=== PATIENT | female | born 1940 | race Caucasian/White ===

== ENCOUNTER → 2016-12-27 | Outpatient (REF) | payer MEDICARE, BC, OTHER ==
[2016-12-27 13:37] LABS: ALBUMIN 3.5 GM/DL (3.2-5.2); ALBUMIN/GLOBULIN RATIO 1.09 (1.00-1.93); BILIRUBIN,TOTAL 0.6 MG/DL (0.2-1.0); CALCIUM LEVEL 8.8 MG/DL (8.8-10.2); CREATININE FOR GFR 1.1 MG/DL (0.55-1.02); GLOMERULAR FILTRATION RATE 51.1 (>39); TOTAL PROTEIN 6.7 GM/DL (6.4-8.2)
[2016-12-27 13:50] LABS: BASO # 0.1 K/mm3 (0.0-0.2); BASO % 0.8 % (0.0-1.0); EOS # 0.3 K/mm3 (0.0-0.50); EOS % 3.7 % (0.0-3.0); LARGE UNSTAINED CELL # 0.1 K/mm3 (0.0-0.4); LARGE UNSTAINED CELL % 1.5 % (0.0-4.0); LYMPH # 1.4 K/mm3 (1.5-4.5); LYMPH % 17.4 % (24.0-44.0); MEAN CORPUSCULAR HEMOGLOBIN 28.8 pg (27.0-33.0); MEAN CORPUSCULAR HGB CONC 32.1 g/dl (32.0-36.5); MEAN CORPUSCULAR VOLUME 89.8 fl (80.0-96.0); MONO # 0.4 K/mm3 (0.0-0.8); MONO % 4.8 % (0.0-5.0); NEUTROPHILS # 5.3 K/mm3 (1.8-7.7); NEUTROPHILS % 71.7 % (36.0-66.0); PLATELET COUNT, AUTOMATED 264 k/mm3 (150-450); RED CELL DISTRIBUTION WIDTH 13.9 % (11.5-14.5); WHITE BLOOD COUNT 7.3 K/mm3 (4.0-10.0)
== END ==
LOC: M LABDRAW1 12:28
PROVIDERS: ATTEND Physician Assistant
DX: C34.11 Malignant neoplasm of upper lobe, right bronchus or lung (principal)

== ENCOUNTER → 2017-01-12 | Outpatient (REF) | payer MEDICARE, OTHER | LOC: M LABDRAW1 10:55 | PROVIDERS: ATTEND Internal Medicine Endocrinology, Diabetes & Metabolism | DX: E55.9 Vitamin D deficiency, unspecified (principal); E06.3 Autoimmune thyroiditis ==

== ENCOUNTER → 2017-02-24 | Outpatient (CLI) | payer MEDICARE, OTHER ==
[~2017-02-24] MED LIST: ZOFR4TAB3 PO
[2017-02-24 18:02] LABS: BASO # 0.1 K/mm3 (0.0-0.2); BASO % 0.9 % (0.0-1.0); EOS # 0.4 K/mm3 (0.0-0.50); EOS % 4.9 % (0.0-3.0); LYMPH # 1.2 K/mm3 (1.5-4.5); LYMPH % 15.1 % (24.0-44.0); MEAN CORPUSCULAR HEMOGLOBIN 30.4 pg (27.0-33.0); MEAN CORPUSCULAR HGB CONC 33.9 g/dl (32.0-36.5); MEAN CORPUSCULAR VOLUME 89.8 fl (80.0-96.0); MONO # 0.3 K/mm3 (0.0-0.8); MONO % 4.2 % (0.0-5.0); NEUTROPHILS # 5.4 K/mm3 (1.8-7.7); NEUTROPHILS % 73.8 % (36.0-66.0); RED CELL DISTRIBUTION WIDTH 13.8 % (11.5-14.5); WHITE BLOOD COUNT 7.4 K/mm3 (4.0-10.0)
[2017-02-24 18:10] LABS: ALBUMIN 3.6 GM/DL (3.2-5.2); ALBUMIN/GLOBULIN RATIO 1.09 (1.00-1.93); BILIRUBIN,TOTAL 0.5 MG/DL (0.2-1.0); CALCIUM LEVEL 8.8 MG/DL (8.8-10.2); CREATININE FOR GFR 0.96 MG/DL (0.55-1.02); GLOMERULAR FILTRATION RATE 59.8 (>39); POTASSIUM SERUM 4.5 MEQ/L (3.5-5.1); TOTAL PROTEIN 6.9 GM/DL (6.4-8.2)
== END ==
LOC: M SMT 11:34
PROVIDERS: ATTEND Physician Assistant Medical
DX: R42 Dizziness and giddiness (principal); E61.1 Iron deficiency

== ENCOUNTER → 2017-02-28 | Outpatient (CLI) | payer MEDICARE, BC, OTHER ==
--- NOTE | 2017-02-28 16:51 | ECGEPIP ---
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
--- NOTE | 2017-03-02 07:24 | REP ---
MR BRAIN WITHOUT CONTRAST: HISTORY: Syncope. Areas of increased signal intensity on T2-weighted images are present in the periventricular and subcortical white matter. This represents small vessel ischemic disease. There is no intraparenchymal hemorrhage, infarct, mass or midline shift. The ventricular system is normal in appearance. The cortical sulci are dilated consistent with minimal volume loss. There is no extracerebral collection. Mucosal thickening is present in the ethmoid and maxillary sinuses. IMPRESSION: 1. Small vessel ischemic disease. 2. Minimal volume loss. Signed by Bart Sanchez MD 03/02/2017 09:41 A
== END ==
LOC: M RAD 13:35
PROVIDERS: ATTEND Physician Assistant Medical
DX: R42 Dizziness and giddiness (principal)

== ENCOUNTER 2017-04-09 16:10 | Emergency (ER) | payer MEDICARE, BC, OTHER ==
[~2017-04-09] VITALS: Ht 154.9 cm; Wt 51.8 kg
[2017-04-09] MEDS ORDERED: ONDANSETRON 4MG/2ML VIAL (J2405) IV ONE (16:30)
[2017-04-09] MEDS ORDERED: NS 1,000 ML IV ONE (16:30)
[2017-04-09 16:54] LABS: BASO % 0.1 % (0.0-1.0); EOS # 0.1 K/mm3 (0.0-0.50); EOS % 0.6 % (0.0-3.0); LARGE UNSTAINED CELL # 0.1 K/mm3 (0.0-0.4); LARGE UNSTAINED CELL % 0.5 % (0.0-4.0); LYMPH # 0.6 K/mm3 (1.5-4.5); LYMPH % 3.9 % (24.0-44.0); MEAN CORPUSCULAR HEMOGLOBIN 30.7 pg (27.0-33.0); MEAN CORPUSCULAR HGB CONC 35.2 g/dl (32.0-36.5); MEAN CORPUSCULAR VOLUME 87.2 fl (80.0-96.0); MONO # 0.5 K/mm3 (0.0-0.8); NEUTROPHILS # 13.8 K/mm3 (1.8-7.7); NEUTROPHILS % 91.9 % (36.0-66.0); PLATELET COUNT, AUTOMATED 250 k/mm3 (150-450); RED CELL DISTRIBUTION WIDTH 13.1 % (11.5-14.5)
--- NOTE | 2017-04-09 17:16 | REP ---
Acute abdominal series three views including PA chest and supine upright abdomen: PA chest: Comparison is 06/30/2016. The lung byrne are clear. Cardiac size is normal. The sima, mediastinum, and bony thorax are unchanged. There is no free subdiaphragmatic air. Impression: Negative PA chest. No interval change. Abdomen, supine upright views: The bowel gas pattern is normal. F there are vascular calcifications in the splenic artery. There is mild lumbar scoliosis convex right. The skeletal soft tissue structures otherwise are unremarkable. Impression: Normal bowel gas pattern. Signed by Rory Guevara MD 04/09/2017 05:07 P
[2017-04-09 17:18] LABS: ALBUMIN 3.6 GM/DL (3.2-5.2); ALBUMIN/GLOBULIN RATIO 1.09 (1.00-1.93); ALKALINE PHOSPHATASE 80 U/L (45-117); ALT/SGPT 17 U/L (12-78); ANION GAP 9 MEQ/L (8-16); AST/SGOT 14 U/L (15-37); BILIRUBIN,DIRECT 0.2 MG/DL (0.0-0.2); BLOOD UREA NITROGEN 17 MG/DL (7-18); CARBON DIOXIDE LEVEL 27 MEQ/L (21-32); CHLORIDE LEVEL 98 MEQ/L (98-107); GLOMERULAR FILTRATION RATE > 60.0 (>39); GLUCOSE, FASTING 124 MG/DL (83-110); POTASSIUM SERUM 3.7 MEQ/L (3.5-5.1); SODIUM LEVEL 134 MEQ/L (136-145); TOTAL PROTEIN 6.9 GM/DL (6.4-8.2)
[2017-04-09] MEDS ORDERED: ZOFR4TAB3 PO (17:30)
[2017-04-09] MEDS ORDERED: ACETAMINOPHEN TAB 650MG DOSE (2X325MG) PO ONE (18:30)
--- NOTE | 2017-04-09 18:30 | ECGEPIP ---
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
[2017-04-09 19:15] VITALS: BP 147/65
== END 2017-04-09 19:37 | disposition home or self-care (01) ==
LOC: M ED 16:10
DX: R11.2 Nausea with vomiting, unspecified (principal); R19.7 Diarrhea, unspecified; I10 Essential (primary) hypertension; Z85.118 Personal history of other malignant neoplasm of bronchus and lung
CPT/HCPCS: 74022; 80048; 80076; 82550; 82553; 83690; 84484; 85025; 93005; 93041; 96374; 99285; J2405

== ENCOUNTER → 2017-06-24 | Outpatient (CLI) | payer MEDICARE, BC, OTHER ==
--- NOTE | 2017-06-24 14:26 | REP ---
CAROTID ULTRASOUND: Real-time ultrasound evaluation and duplex Doppler interrogation of the extracranial carotid vasculature is performed. There is mild plaquing and narrowing in both carotid bulbs extending into the internal and external carotid arteries. Luminal narrowing is less than 50%. There is no evidence of hemodynamically significant stenosis of either internal carotid artery. Normal flow velocities are seen. The vertebral arteries demonstrate normal direction of flow. RIGHT LEFT Peak systolic velocity ICA 56.2 cm/s 64.8 cm/s End diastolic velocity ICA 17.1 cm/s 19 cm/s Peak systolic velocity CCA 54.5 cm/s 75.9 cm/s Peak systolic velocity ECA 78.5 cm/s 73.5 cm/s ICA/CCA ratio 1.0 0.85 IMPRESSION: Bilateral luminal narrowing of the internal carotid arteries less than 50%. No evidence of hemodynamically significant stenosis. Signed by Rory Villalobos MD 06/24/2017 02:17 P
== END ==
LOC: M RAD 12:59
PROVIDERS: ATTEND Physician Assistant Medical
DX: R09.89 Other specified symptoms and signs involving the circulatory and respiratory systems (principal)

== ENCOUNTER → 2017-07-07 | Outpatient (CLI) | payer MEDICARE, BC, OTHER ==
--- NOTE | 2017-07-07 16:26 | REP ---
Digital diagnostic unilateral left breast mammography with CAD: History: Screening mammography June 27, 2017 BIRADS category zero because of some progressive calcifications in the inferior medial aspect of the left breast for which diagnostic imaging was recommended. Comparison is also made with prior mammography May 20, 2016, April 10, 2015, and February 19, 2014. Mammographic findings: Magnified focal spot compression CC, MLO and true MLO views confirm the presence of coarse heterogeneous pleomorphic calcifications in a tight grouping in the inferior medial quadrant of the left breast with some adjacent new calcifications. These are progressing since prior mammography from April 2016. A equivocal associated soft tissue component is present. No other suspicious mammographic finding. Impression: BIRADS category four suspicious left breast imaging. Coarse heterogeneous microcalcifications noted inferiorly and medially left breast. Stereotactic needle biopsy recommended. BI-RADS/ACR category 4 mammogram. Suspicious abnormality - biopsy should be considered. Usually requires biopsy. This mammogram was interpreted with the aid of an FDA-approved computer-aided detection system. The patient states she had a clinical breast exam in May 2017. The patient letter being requested is M4. Signed by Justin Ortega MD 07/07/2017 05:27 P
== END ==
LOC: M RAD 13:04
DX: R92.2 Inconclusive mammogram (principal); R92.0 Mammographic microcalcification found on diagnostic imaging of breast

== ENCOUNTER → 2017-07-15 | Outpatient (CLI) | payer MEDICARE, BC, OTHER ==
[2017-07-15 11:35] LABS: BASO # 0.1 10^3/uL (0.0-0.2); BASO % 1.5 % (0.0-1.0); EOS # 0.4 10^3/uL (0.0-0.50); EOS % 5.1 % (0.0-3.0); IMMATURE GRANULOCYTE % 0.4 % (0-0); LYMPH # 1.3 10^3/uL (1.5-4.5); LYMPH % 19.3 % (24.0-44.0); MEAN CORPUSCULAR HEMOGLOBIN 29.1 pg (27.0-33.0); MEAN CORPUSCULAR HGB CONC 31.9 g/dl (32.0-36.5); MEAN CORPUSCULAR VOLUME 91.3 fl (80.0-96.0); MONO # 0.6 10^3/uL (0.0-0.8); MONO % 8.4 % (0.0-5.0); NEUTROPHILS # 4.4 10^3/uL (1.8-7.7); NEUTROPHILS % 65.3 % (36.0-66.0); PLATELET COUNT, AUTOMATED 293 10^3/uL (150-450); RED CELL DISTRIBUTION WIDTH 14.3 % (11.5-14.5); WHITE BLOOD COUNT 6.8 10^3/uL (4.0-10.0)
[2017-07-15 12:27] LABS: ALBUMIN 3.4 GM/DL (3.2-5.2); BILIRUBIN,TOTAL 0.4 MG/DL (0.2-1.0); CALCIUM LEVEL 8.7 MG/DL (8.8-10.2); CREATININE FOR GFR 1.08 MG/DL (0.55-1.02); GLOMERULAR FILTRATION RATE 52.1 (>39); POTASSIUM SERUM 4.4 MEQ/L (3.5-5.1); THYROXINE (T4) 16.4 UG/DL (4.5-12.0); TOTAL PROTEIN 6.8 GM/DL (6.4-8.2)
== END ==
LOC: M LABDRAW1 08:21
PROVIDERS: ATTEND Physician Assistant Medical
DX: I10 Essential (primary) hypertension (principal); E55.9 Vitamin D deficiency, unspecified

== ENCOUNTER → 2017-08-08 | Outpatient (REF) | payer MEDICARE, OTHER | LOC: M LAB REF 12:43 | PROVIDERS: ATTEND Radiology Diagnostic Radiology | DX: M61.9 Calcification and ossification of muscle, unspecified (principal) ==

== ENCOUNTER → 2017-11-23 | Outpatient (REF) | payer MEDICARE, OTHER ==
[2017-11-23 12:30] LABS: BASO # 0.1 10^3/uL (0.0-0.2); BASO % 1.2 % (0.0-1.0); EOS # 0.2 10^3/uL (0.0-0.50); HEMATOCRIT 39.3 % (36.0-47.0); HEMOGLOBIN 12.5 g/dl (12.0-16.0); IMMATURE GRANULOCYTE % 0.3 % (0-3.0); LYMPH # 1.1 10^3/uL (1.5-4.5); LYMPH % 17.6 % (24.0-44.0); MEAN CORPUSCULAR HEMOGLOBIN 28.2 pg (27.0-33.0); MEAN CORPUSCULAR HGB CONC 31.8 g/dl (32.0-36.5); MEAN CORPUSCULAR VOLUME 88.5 fl (80.0-96.0); MONO # 0.5 10^3/uL (0.0-0.8); NEUTROPHILS # 4.1 10^3/uL (1.8-7.7); NEUTROPHILS % 67.9 % (36.0-66.0); PLATELET COUNT, AUTOMATED 254 10^3/uL (150-450); RED BLOOD COUNT 4.44 10^6/uL (4.00-5.40); RED CELL DISTRIBUTION WIDTH 15.4 % (11.5-14.5)
[2017-11-23 13:03] LABS: ALBUMIN 3.5 GM/DL (3.2-5.2); ALBUMIN/GLOBULIN RATIO 1.09 (1.00-1.93); ALKALINE PHOSPHATASE 74 U/L (45-117); ALT/SGPT 17 U/L (12-78); ANION GAP 7 MEQ/L (8-16); AST/SGOT 14 U/L (7-37); BILIRUBIN,TOTAL 0.6 MG/DL (0.2-1.0); BLOOD UREA NITROGEN 18 MG/DL (7-18); CALCIUM LEVEL 8.8 MG/DL (8.8-10.2); CARBON DIOXIDE LEVEL 28 MEQ/L (21-32); CHLORIDE LEVEL 107 MEQ/L (98-107); GLOMERULAR FILTRATION RATE 56.9 (>39); GLUCOSE, FASTING 92 MG/DL (70-100); LDH LACTATE DEHYDROGENASE 178 U/L (84-246); SODIUM LEVEL 142 MEQ/L (136-145); TOTAL PROTEIN 6.7 GM/DL (6.4-8.2)
== END ==
LOC: M LABDRAW1 10:13
DX: C34.90 Malignant neoplasm of unspecified part of unspecified bronchus or lung (principal)
CPT/HCPCS: 83615

== ENCOUNTER → 2018-01-04 | Outpatient (REF) | payer MEDICARE, OTHER ==
[2018-01-04 12:15] LABS: TOTAL 25(OH) VITAMIN D 55.5 NG/ML (30.0-100.0)
[2018-01-04 12:41] LABS: THYROID STIMULATING HORMONE 0.607 uIU/ML (0.358-3.740)
== END ==
LOC: M LABDRAW1 09:07
DX: E06.3 Autoimmune thyroiditis (principal); E55.9 Vitamin D deficiency, unspecified
CPT/HCPCS: 84443

== ENCOUNTER → 2019-06-22 | Outpatient (REF) | payer MEDICARE, OTHER ==
[~2019-06-22] MED LIST changes: +ALBU83IN INH; +CIPR250T3; +OLME1TAB7; +PRED10TA2; +PROAAER10; +QVAR80AE10; +SYNT75TA; +ZOFR4TAB14 PO; -ZOFR4TAB3 PO
[2019-06-22 13:39] LABS: CALCIUM LEVEL 9.2 MG/DL (8.8-10.2); CHOLESTEROL RISK RATIO 3.129 (<5); CREATININE FOR GFR 1.02 MG/DL (0.55-1.30); GLOMERULAR FILTRATION RATE 55.4 (>32); POTASSIUM SERUM 4.1 MEQ/L (3.5-5.1); THYROID STIMULATING HORMONE 0.421 uIU/ML (0.358-3.740)
== END ==
LOC: M LABDRAW1 12:28
PROVIDERS: ATTEND Internal Medicine
DX: I10 Essential (primary) hypertension (principal); E03.9 Hypothyroidism, unspecified

== ENCOUNTER → 2019-10-15 | Outpatient (REF) | payer MEDICARE, OTHER | LOC: M LAB REF 12:24 | PROVIDERS: ATTEND Internal Medicine | DX: J06.9 Acute upper respiratory infection, unspecified (principal); R42 Dizziness and giddiness; R11.2 Nausea with vomiting, unspecified ==

== ENCOUNTER → 2019-10-24 | Outpatient (CLI) | payer MEDICARE, BC, OTHER ==
--- NOTE | 2019-10-24 10:31 | REPVR ---
PROCEDURE INFORMATION: Exam: CT Head Without Contrast Exam date and time: 10/24/2019 9:41 AM Age: 79 years old Clinical indication: Pain; Headache; Additional info: Vertigo TECHNIQUE: Imaging protocol: Computed tomography of the head without contrast. Radiation optimization: All CT scans at this facility use at least one of these dose optimization techniques: automated exposure control; mA and/or kV adjustment per patient size (includes targeted exams where dose is matched to clinical indication); or iterative reconstruction. COMPARISON: MRI-Brain without Contrast 02/28/2017 2:04 PM FINDINGS: Brain: There are scattered foci of low density in the alejo radiata and centrum semiovale, likely reflecting areas of gliosis, demyelination, and/or ischemic change. Ventricles: Normal. No ventriculomegaly. Bones/joints: Unremarkable. No acute fracture. Sinuses: Visualized sinuses are unremarkable. No fluid levels. Mastoid air cells: Visualized mastoid air cells are well aerated. Soft tissues: Unremarkable. IMPRESSION: There are scattered foci of low density in the alejo radiata and centrum semiovale, likely reflecting areas of gliosis, demyelination, and/or ischemic change. If an acute infarct is clinically suspected, consider MRI with diffusion imaging. Electronically signed by: Sammy Read On 10/24/2019 10:31:19 AM
== END ==
LOC: M RAD 09:31
PROVIDERS: ATTEND Internal Medicine
DX: R42 Dizziness and giddiness (principal)

== ENCOUNTER → 2020-04-21 | Outpatient (CLI) | payer MEDICARE, BC, OTHER ==
[2020-04-21 14:07] LABS: FREE T4 1.51 NG/DL (0.76-1.46); THYROID STIMULATING HORMONE 0.336 uIU/ML (0.358-3.740)
== END ==
LOC: M PLALAB 08:33
PROVIDERS: ATTEND Internal Medicine
DX: E03.9 Hypothyroidism, unspecified (principal)

== ENCOUNTER → 2020-06-12 | Outpatient (REF) | payer MEDICARE, BC, OTHER | LOC: M LABDRWAD 16:12 | PROVIDERS: ATTEND Internal Medicine | DX: E03.9 Hypothyroidism, unspecified (principal) ==

== ENCOUNTER → 2020-08-08 | Outpatient (CLI) | payer MEDICARE, BC, OTHER ==
[2020-08-08 14:04] LABS: FREE T4 1.37 NG/DL (0.76-1.46); THYROID STIMULATING HORMONE 4.97 uIU/ML (0.358-3.740)
== END ==
LOC: M PLALAB 09:35
PROVIDERS: ATTEND Internal Medicine Endocrinology, Diabetes & Metabolism
DX: E06.3 Autoimmune thyroiditis (principal)

== ENCOUNTER 2020-11-16 11:15 | Emergency (ER) | payer MEDICARE, BC, OTHER ==
[~2020-11-16] VITALS: Ht 154.9 cm; Wt 50.0 kg
[2020-11-16] MEDS ORDERED: BREO1INH3 (11:33)
[2020-11-16] MEDS ORDERED: LIDO1CRE2 (11:33)
[2020-11-16 12:03] LABS: BASO % 0.3 % (0.0-1.0); EOS # 0.1 10^3/uL (0.0-0.5); EOS % 0.5 % (0.0-3.0); HEMATOCRIT 37.8 % (36.0-47.0); HEMOGLOBIN 12.2 g/dl (12.0-15.5); LYMPH # 0.6 10^3/uL (1.5-5.0); LYMPH % 4.6 % (24.0-44.0); MEAN CORPUSCULAR HEMOGLOBIN 27.6 pg (27.0-33.0); MEAN CORPUSCULAR HGB CONC 32.3 g/dl (32.0-36.5); MEAN CORPUSCULAR VOLUME 85.5 fl (80.0-96.0); MONO # 0.7 10^3/uL (0.0-0.8); MONO % 5.2 % (2.0-8.0); NEUTROPHILS # 12.2 10^3/uL (1.5-8.5); NEUTROPHILS % 88.5 % (36.0-66.0); PLATELET COUNT, AUTOMATED 241 10^3/uL (150-450); RED BLOOD COUNT 4.42 10^6/uL (4.00-5.40); WHITE BLOOD COUNT 13.8 10^3/uL (4.0-10.0)
[2020-11-16] MEDS ORDERED: ACETAMINOPHEN TAB 650MG DOSE (2X325MG) PO ONE (12:15)
[2020-11-16] MEDS ORDERED: carisoprodoL 350 MG TAB PO ONE (12:15)
[2020-11-16 12:33] LABS: ALBUMIN 2.9 GM/DL (3.2-5.2); ALT/SGPT 39 U/L (12-78); BILIRUBIN,DIRECT 0.4 MG/DL (0.0-0.2); BILIRUBIN,TOTAL 0.9 MG/DL (0.2-1.0); BLOOD UREA NITROGEN 15 MG/DL (7-18); CALCIUM LEVEL 8.9 MG/DL (8.8-10.2); CARBON DIOXIDE LEVEL 26 MEQ/L (21-32); CHLORIDE LEVEL 95 MEQ/L (98-107); CREATININE FOR GFR 0.71 MG/DL (0.55-1.30); GLOMERULAR FILTRATION RATE > 60.0 (>32); GLUCOSE, FASTING 95 MG/DL (70-100); LIPASE 72 U/L (73-393); SODIUM LEVEL 130 MEQ/L (136-145); TOTAL PROTEIN 6.7 GM/DL (6.4-8.2)
--- NOTE | 2020-11-16 13:00 | REPVR ---
PROCEDURE INFORMATION: Exam: CT Lumbar Spine Without Contrast Exam date and time: 11/16/2020 12:24 PM Age: 80 years old Clinical indication: Low back pain TECHNIQUE: Imaging protocol: Computed tomography images of the lumbar spine without contrast. Radiation optimization: All CT scans at this facility use at least one of these dose optimization techniques: automated exposure control; mA and/or kV adjustment per patient size (includes targeted exams where dose is matched to clinical indication); or iterative reconstruction. COMPARISON: SR Abdomen,Flat Upright,PA CHEST 04/09/2017 4:50:51 PM FINDINGS: Vertebrae: There is dextroscoliosis centered in mid lumbar spine. There is no acute fracture. There is grade 1 anterolisthesis L3 on L4 and L4 on L5. Discs/Spinal canal/Neural foramina: There is [id number] disc height loss. There are vacuum disc at L2-L3 and L5-S1. There are disc bulges and facet degenerative changes. L1-L2 shows no spinal stenosis or significant neural foraminal narrowing. L2-L3 shows slightly asymmetric left subarticular recess disc bulge with subarticular recess narrowing. There is mild bilateral neural foraminal narrowing. No significant spinal stenosis. L3-L4 shows mild right and moderate left neural foraminal narrowing and mild spinal stenosis. L4-L5 shows mild spinal stenosis and neural foraminal narrowing. L5-S1 shows moderate right neural foraminal narrowing and no significant left neural foraminal narrowing. There is mild spinal stenosis. Sacrum/coccyx: There is approximately 2 cm sclerotic lesion in left sacral ala could be bone island but sclerotic metastasis can have similar appearance. This appears similar to 2017 x-ray and therefore benign etiology is more likely. This could be further evaluated with bone scan if clinically indicated. Other bones/joints: Bones appear demineralized. Kidneys and ureters: There is approximately 1.7 cm posteromedial simple appearing cyst in left kidney. No hydronephrosis. Stomach and bowel: There is sigmoid diverticula. There is moderate colonic stool. Vasculature: There is atherosclerotic change. There is no aortic aneurysm. Soft tissues: Unremarkable. IMPRESSION: 1. No acute fracture. 2. Dextroscoliosis and degenerative changes. 3. Sclerotic lesion left sacral ala appears not significantly changed 2017 x-ray. If patient has known malignancy or other clinical indication for further evaluation, consider bone scan. COMMENTS: Consistent with the [employer]'s Incidental Findings Committee white paper (J Am Gerardo Radiol 2018): Any incidental renal lesion less than 1 cm or classified as too small to characterize, or any incidental cystic renal lesion characterized as simple-appearing, is likely benign. No follow-up imaging is recommended for these lesions per consensus recommendations based on imaging criteria. Electronically signed by: Ama Mondragon On 11/16/2020 13:00:37 PM
[2020-11-16] MEDS ORDERED: MACR100C43 PO (14:06)
[2020-11-16] MEDS ORDERED: SOMA250T PO (14:06)
[2020-11-16 14:32] VITALS: BP 132/71
--- NOTE | 2020-11-17 13:17 | ED PDOC ---
Post-Departure Follow-Up ct ls spine faxed to dr morris for fu Patience Otto MD Nov 17, 2020 13:17
== END 2020-11-16 14:34 | disposition home or self-care (01) ==
LOC: EDBD 11:15 → M ED 11:15
DX: M54.5 Low back pain (principal); F17.200 Nicotine dependence, unspecified, uncomplicated; Z79.51 Long term (current) use of inhaled steroids; Z79.899 Other long term (current) drug therapy; Z88.0 Allergy status to penicillin; Z88.1 Allergy status to other antibiotic agents; Z88.6 Allergy status to analgesic agent; Z91.041 Radiographic dye allergy status

== ENCOUNTER → 2020-11-17 | Outpatient (CLI) | payer MEDICARE, BC, OTHER ==
[~2020-11-17] MED LIST changes: +BREO1INH3; +LIDO1CRE2; +MACR100C43 PO; +SOMA250T PO
--- NOTE | 2020-11-17 14:14 | REP ---
INDICATION: PVD COMPARISON: None. TECHNIQUE: Real time villalobos scale and Duplex Doppler evaluation of the bilateral lower extremity arterial vasculature using linear high frequency transducer. FINDINGS: Villalobos scale and duplex doppler images demonstrate significant diffuse plaque in the bilateral lower extremity arterial systems. The right distal posterior tibial artery is occluded. Diffuse biphasic waveforms are seen in the arterial structures of the right lower extremity except for monophasic waveforms throughout the anterior tibial artery. On the left there are diffuse triphasic and biphasic waveforms of common femoral and proximal superficial femoral arteries, monophasic waveforms are seen from the distal superficial femoral artery inferiorly. Somewhat slow velocity of flow is seen in the mid to distal SFA and more distal arterial structures possibly indicating diffuse significant narrowing. There is trickle flow in the distal anterior tibial artery. Peak systolic velocities (cm/sec) Common femoral artery: Right 87; Left 91 Profunda femoris: Right 68; Left 130 SFA (proximal): Right 88; Left 48 SFA (mid): Right 122; Left 34 SFA (distal): Right 90; Left 35 Popliteal artery: Right 118; Left 31 MISSY (prox.): Right 69; Left 16 Tibioperoneal trunk: Right 75; Left 26 NURSE TECH (prox.): Right 21; Left 36 NURSE TECH (distal): Right occluded; Left 34 MISSY (distal): Right 70; Left 10 IMPRESSION: Significant diffuse plaquing bilaterally. 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 Monophasic waveforms and slow flow velocities of mid to distal left SFA and more distal arterial structures. <Electronically signed by Rory Villalobos > 11/17/20 [id number]
== END ==
LOC: M RAD 12:59
PROVIDERS: ATTEND Podiatrist Foot & Ankle Surgery
DX: I73.9 Peripheral vascular disease, unspecified (principal)